=== PATIENT | male | born 1995 | race Caucasian/White ===

== ENCOUNTER 2025-05-18 10:07 | Emergency (ER) | payer OTHER ==
[~2025-05-18] VITALS: Ht 182.9 cm; Wt 180.0 kg
[2025-05-18] MEDS ORDERED: CYMBALTA30 MG PO (10:17)
[2025-05-18 10:47] VITALS: BP 133/79
== END 2025-05-18 10:52 | disposition home or self-care (01) ==
LOC: ED 10:07
DX: S61.217A Laceration without foreign body of left little finger without damage to nail, initial encounter (principal); W45.8XXA Other foreign body or object entering through skin, initial encounter; Z79.899 Other long term (current) drug therapy; Y93.G1 Activity, food preparation and clean up
CPT/HCPCS: 99282